=== PATIENT | female | born 1960 | race Caucasian/White ===

== ENCOUNTER → 2021-07-20 | Outpatient (CLI) | payer OTHER ==
--- NOTE | 2021-07-20 15:11 | RAD ---
EXAM: Bilateral knees, standing view; right knee, 2 views. HISTORY: Pain. COMPARISON: None. FINDINGS: A standing view both knees and 2 views of the right knee are obtained. There is mild right medial compartment joint space narrowing. There is suspected right knee medial compartment chondrocal cinosis. There is degenerative spurring involving the medial patellofemoral compartment There is a tr natalya right knee effusion. There is no fracture, dislocation or subluxation. IMPRESSION: Mild medial and patellofemoral compartment osteoarthritis of the right knee with suspecte d trace joint effusion and chondrocalcinosis. Electronically signed by: Donna Hill MD (07/20/2021 3:09 PM) [id number]
== END ==
LOC: RAD 14:39
PROVIDERS: ATTEND Physician Assistant
DX: M17.11 Unilateral primary osteoarthritis, right knee (principal); M76.891 Other specified enthesopathies of right lower limb, excluding foot; M25.861 Other specified joint disorders, right knee
CPT/HCPCS: 73560; 73565